=== PATIENT | male | born 1970 | race Two or more races ===

== ENCOUNTER 2023-02-16 10:26 | Day surgery (SDC) | payer OTHER ==
[2023-02-13 12:52] LABS: PH,URINE 5.5 (5.0-8.0); URINE APPEARANCE Clear; URINE BILIRRUBIN Negative (NEGATIVE); URINE BLOOD Negative; URINE COLOR Yellow; URINE GLUCOSE Negative (NEGATIVE); URINE LEUKOCYTE Negative; URINE NITRATE Negative; URINE PROTEIN Negative (NEGATIVE); URINE UROBILINOGEN 0.2 E.U./dl
[2023-02-13 12:57] LABS: URINE WBC 2.3 uL (0.0-23.2)
[2023-02-13 13:04] LABS: HEMATOCRIT 44.2 % (39.0-48.0); HEMOGLOBIN 15.1 g/dL (13-16.00); MEAN CELL VOLUME 96.8 fL (80.0-100.00); MEAN CORPUSCULAR HGB CONC 34.1 g/dl (32.0-36.0); PLATELET COUNT 292 K/uL (150-450); RED BLOOD COUNT 4.56 M/uL (4.00-6.00); RED CELL DISTRIBUTION WIDTH 12.8 % (11.5-14.5)
[2023-02-13 13:12] LABS: INR 1.1; PARTIAL THROMBOPLASTIN TIME 27.7 SECONDS (22.0-34.0); PROTHROMBIN TIME 11.5 SECONDS (9.0-11.5)
[2023-02-13 13:16] LABS: URINE BACTERIA 2.5 uL (0.0-1933); URINE EPITHELIAL CELLS 1.2 uL (0.0-38.8)
[2023-02-13 13:22] LABS: CALCIUM 9.6 mg/dL (8.5-10.1); CREATININE SERUM 1.01 mg/dL (0.70-1.30); GFR 78.19; POTASSIUM 4.71 mEq/L (3.5-5.1)
[2023-02-16] MEDS ORDERED: KETO10TA2 PO (13:28)
[2023-02-16] MEDS ORDERED: TYLENOL ARTHRI650 MG PO (13:28)
[2023-02-16] MEDS ORDERED: NEURONTIN300 MG PO (13:28)
[2023-02-16] MEDS ORDERED: TRAMADOL HCL50 MG PO (13:28)
[2023-02-16] MEDS ORDERED: MIRALAX17 GM PO (13:28)
== END 2023-02-16 18:55 | disposition home or self-care (01) ==
LOC: CIR.AMB 10:26
PROVIDERS: ATTEND Surgery
DX: K43.0 Incisional hernia with obstruction, without gangrene (principal); I10 Essential (primary) hypertension; Z20.822 Contact with and (suspected) exposure to COVID-19; Z88.1 Allergy status to other antibiotic agents
CPT/HCPCS: 49594; C1781